=== PATIENT | female | born 1960 | race Caucasian/White ===

== ENCOUNTER → 2018-12-10 | Outpatient (CLI) | payer OTHER | LOC: LAB SHORT 07:59 → PLD 07:59 | DX: R87.612 Low grade squamous intraepithelial lesion on cytologic smear of cervix (LGSIL) (principal); R87.810 Cervical high risk human papillomavirus (HPV) DNA test positive | CPT/HCPCS: 88305; 88342 ==

== ENCOUNTER → 2019-12-21 | Outpatient (CLI) | payer OTHER ==
[2019-12-23 15:11] LABS: HPV 16 Negative (Negative); HPV 18 Negative (Negative); HPV OTHER HR TYPES Positive (Negative)
== END ==
LOC: LAB SHORT 19:23 → LAB 19:23
PROVIDERS: Registered Nurse Community Health
DX: Z12.4 Encounter for screening for malignant neoplasm of cervix (principal); Z87.42 Personal history of other diseases of the female genital tract
CPT/HCPCS: 87624; 87625; G0123

== ENCOUNTER → 2020-04-03 | Outpatient (CLI) | payer OTHER | LOC: LAB SHORT 07:58 → PLD 07:58 | DX: R87.619 Unspecified abnormal cytological findings in specimens from cervix uteri (principal) | CPT/HCPCS: 88305; 88342 ==

== ENCOUNTER 2021-08-30 10:05 | Day surgery (SDC) | payer OTHER ==
[~2021-08-30] VITALS: Ht 152.4 cm; Wt 52.2 kg
[2021-08-30] MEDS ORDERED: PROBIOTIC1 EA13 PO (10:17)
[2021-08-30] MEDS ORDERED: ATOR10 PO (10:17)
[2021-08-30] MEDS ORDERED: LOSA25 PO (10:18)
--- NOTE | 2021-08-30 10:34 | NUR ---
08/30/21 1033 Deb Rivera PT IN ROOM WITH DR. LUCAS. NO QUESTIONS OR CONCERNS FOR THE RN IN ROOM. CALL LIGHT WITHIN REACH. BED IN LOWEST POSITION. SIDERAILS UP. WILL CONTINUE TO MONITOR
--- NOTE | 2021-08-30 11:35 | NUR ---
08/30/21 1135 Lisa Duff IN/OUT CATH AT START OF CASE
== END 2021-08-30 12:05 | disposition home or self-care (01) ==
LOC: ORSCSDS 10:05
PROVIDERS: Obstetrics & Gynecology
PROC: 0UBC7ZX Excision of Cervix, Via Natural or Artificial Opening, Diagnostic (ICD-10-PCS; principal; 2021-08-30 11:00)
DX: D06.0 Carcinoma in situ of endocervix (principal); I10 Essential (primary) hypertension; Z79.899 Other long term (current) drug therapy
CPT/HCPCS: 88305; J0171; J0690; J1100; J1885; J2405; J2704; J3010; J7120

== ENCOUNTER 2022-08-29 11:18 | Day surgery (SDC) | payer OTHER ==
[2022-08-28 12:38] LABS: BASOPHILS ABSOLUTE AUTO 0.06 K/mm3 (0.00-0.23); BASOPHILS PERCENT AUTO 1 % (0-2); EOSINOPHILS ABSOLUTE AUTO 0.18 K/mm3 (0.00-0.68); EOSINOPHILS PERCENT AUTO 3 % (0-6); Hematocrit 42.3 % (33.0-51.0); Hemoglobin 13.5 g/dL (11.5-16.0); IMMATURE GRAN ABSOLUTE AUTO 0.01 K/mm3 (0.00-0.10); IMMATURE GRAN PERCENT AUTO 0 % (0-1); LYMPHOCYTES ABSOLUTE AUTO 2.46 K/mm3 (0.84-5.20); LYMPHOCYTES PERCENT AUTO 39 % (21-46); MONOCYTES ABSOLUTE AUTO 0.44 K/mm3 (0.16-1.47); MONOCYTES PERCENT AUTO 7 % (4-13); Mean Corpuscular HGB 29.8 pg (26.0-34.0); Mean Corpuscular HGB Conc 31.9 g/dL (31.5-36.5); Mean Corpuscular Volume 93 fL (80-100); Mean Platelet Volume 10.2 fL (9.1-12.4); NEUTROPHILS ABSOLUTE AUTO 3.16 K/mm3 (1.96-9.15); NEUTROPHILS PERCENT AUTO 50 % (41-73); Platelet Count 325 K/mm3 (150-400); RDW Coefficient Variation 13.7 % (11.7-14.2); RDW Standard Deviation 46.8 fL (35.1-46.3); Red Blood Cell Count 4.53 M/mm3 (3.80-5.20); White Blood Cell Count 6.31 K/mm3 (4.00-11.30)
[2022-08-28 12:53] LABS: Bun/Creatinine Ratio 15.7 (12.0-20.0); Calcium, Blood 9.2 mg/dL (8.5-10.1); Creatinine, Blood 0.76 mg/dL (0.40-1.00); Potassium, Blood 4.3 mmol/L (3.5-5.5)
[~2022-08-29] VITALS: Ht 152.4 cm; Wt 49.6 kg
[~2022-08-29 11:18] MED LIST: ATOR10 PO; LOSA25 PO; PROBIOTIC1 EA13 PO
--- NOTE | 2022-08-29 12:51 | NUR ---
Ambulatory in Day Surgery Surgical site prepped with 2% Chlorhexidine cloth wipe. History, Chart, Medications and Allergies reviewed before start of procedure. Patient confirms NPO status and agrees with scheduled surgery. Pre-Op teaching done. Pt verbalizes understanding. Patient reports completing Chlorhexadine shower X2 prior to admission to hospital. PT GLASSES GIVEN TO DAUGHTER IN PREOP.
--- NOTE | 2022-08-29 17:21 | NUR ---
PT ARRIVED TO UNIT FROM PACU TRANSFERRED PT FROM [facility] TO BED. DENIES PAIN, N/V OR SOB. VSS. HARMON CATH DRAINING CLEAR YELLOW URINE. LAP SITES TO ABD CDI. SCANT AMOUNT DRAINAGE NOTED ON AGATHA PAD. ORIENTED PT TO USE OF CALL LIGHT. FAMILY AT [facility].
--- NOTE | 2022-08-29 18:28 | NUR ---
SUMMARY PT SLEEPING. WAKES TO VOICE. FAMILY AT BEDSIDE. PT HAS DENIED PAIN, N/V OR SOB. CALL LIGHT IN REACH.
--- NOTE | 2022-08-30 01:30 | NUR ---
DISCUSSED REMOVING CATHETER AND ATTEMPTING AMBULATION WITH PT. PT REQUESTED TO SLEEP AND REST FOR THE NIGHT AND PREFERED THE CATHETER REMAIN IN PLACE UNTIL MORNING, PER ORDER. PT RESTING WITH CALL LIGHT IN REACH.
[2022-08-30 04:30] LABS: BASOPHILS ABSOLUTE AUTO 0.02 K/mm3 (0.00-0.23); BASOPHILS PERCENT AUTO 0 % (0-2); EOSINOPHILS PERCENT AUTO 0 % (0-6); Hematocrit 35.5 % (33.0-51.0); Hemoglobin 11.9 g/dL (11.5-16.0); IMMATURE GRAN ABSOLUTE AUTO 0.06 K/mm3 (0.00-0.10); IMMATURE GRAN PERCENT AUTO 1 % (0-1); LYMPHOCYTES ABSOLUTE AUTO 1.53 K/mm3 (0.84-5.20); LYMPHOCYTES PERCENT AUTO 12 % (21-46); MONOCYTES ABSOLUTE AUTO 0.54 K/mm3 (0.16-1.47); MONOCYTES PERCENT AUTO 4 % (4-13); Mean Corpuscular HGB 30.6 pg (26.0-34.0); Mean Corpuscular HGB Conc 33.5 g/dL (31.5-36.5); Mean Corpuscular Volume 91 fL (80-100); Mean Platelet Volume 10.4 fL (9.1-12.4); NEUTROPHILS ABSOLUTE AUTO 10.56 K/mm3 (1.96-9.15); NEUTROPHILS PERCENT AUTO 83 % (41-73); Platelet Count 268 K/mm3 (150-400); RDW Coefficient Variation 13.9 % (11.7-14.2); RDW Standard Deviation 46.4 fL (35.1-46.3); Red Blood Cell Count 3.89 M/mm3 (3.80-5.20); White Blood Cell Count 12.71 K/mm3 (4.00-11.30)
--- NOTE | 2022-08-30 04:58 | NUR ---
0400 HRS: DISCUSSED REMOVING CATHETER WITH PT. PT STATES SHE WANTS THE HARMON TO STAY IN UNTIL SHE GETS UP FOR THE MORNING. WILL DISCUSS WITH DAY RN DURING REPORT. EDUCATED PT. PT WOULD LIKE TO REST AND STATES THAT SHE IS TIRED AND WOULD LIKE TO SLEEP FOR THE REST OF THE SHIFT IF POSSIBLE.
--- NOTE | 2022-08-30 05:19 | NUR ---
SHIFT SUMMARY: A&OX4. VERY PLEASANT. PAIN WELL MANAGED T/O THE SHIFT. VERY LIGHT VAGINAL BLEEDING T/O THE SHIFT. PT RESTED COMORTABLY. TOLERATING PO FLUIDS AND FOOD. SNACKED ON JELLO AND CRACKERS DURING THE SHIFT. DENIED N/V. RESTING COMFORTABLY AT THIS TIME WITH CALL LIGHT IN REACH.
[2022-08-30] MEDS ORDERED: ESTR2 PO (09:49)
[2022-08-30] MEDS ORDERED: IBUP400 PO (09:49)
[2022-08-30] MEDS ORDERED: PROM25 PO (09:50)
[2022-08-30] MEDS ORDERED: SIME80CH PO (09:50)
[2022-08-30] MEDS ORDERED: Percocet 5-3251 EACH PO (09:50)
--- NOTE | 2022-08-30 10:17 | NUR ---
DISCHARGE NOTE: PATIENT AND WERE EDUCATED ON DISCHARGE INSTRUCTIONS. BOTH VERBALIZED UNDERSTANDING OF INSTRUCTIONS AND HAD NO FURTHER QUESTIONS. PATIENT ALREADY HAS HARD PERSCRIPTIONS FILLED OUT AND WAITING FOR HER AT HOME. PAIN IS MANAGED WITH PO PAIN MEDICATIONS. IV WAS TAKEN OUT AND WNL. SHE IS TOLERATING PO INTAKE, VOIDING, AND PASSING A LITTLE BIT OF GAS. SHE IS AMBULATING WITHIN THE ROOM INDEP. SHE IS DRESSED AND HAS ITEMS IN THE ROOM GATHERED. PATIENT IS BEING WHEELCHAIRED DOWN TO HER HUSBANDS CAR TO BE TAKEN HOME. PATIENTS ESTROGEN PILL WAS CALLED IN TO HER PREFERRED PHARMACY WHICH IS [facility] IN [place].
== END 2022-08-30 10:21 | disposition home or self-care (01) ==
LOC: ORSCMMR 11:18 → ORD 12:30 → ORSCMMR 13:15 → SURS 17:03 → ORSCMMR 08-30 10:21
PROVIDERS: Obstetrics & Gynecology
PROC: 0UT94ZZ Resection of Uterus, Percutaneous Endoscopic Approach (ICD-10-PCS; principal; 2022-08-29 13:15)
PROC: 0UT24ZZ Resection of Bilateral Ovaries, Percutaneous Endoscopic Approach (ICD-10-PCS; principal; 2022-08-29 13:15)
PROC: 0UT74ZZ Resection of Bilateral Fallopian Tubes, Percutaneous Endoscopic Approach (ICD-10-PCS; principal; 2022-08-29 13:15)
DX: R87.610 Atypical squamous cells of undetermined significance on cytologic smear of cervix (ASC-US) (principal); R87.810 Cervical high risk human papillomavirus (HPV) DNA test positive; N87.0 Mild cervical dysplasia; D25.9 Leiomyoma of uterus, unspecified; N80.03 Adenomyosis of the uterus; I10 Essential (primary) hypertension; Z79.899 Other long term (current) drug therapy
CPT/HCPCS: 58571; S2900; 36415; 80048; 85025; 86850; 86900; 86901; 88307; A9270; J0690; J1885; J2250; J2704; J2795; J3010; J7120

== ENCOUNTER → 2025-03-14 | Outpatient (CLI) | payer OTHER ==
[~2025-03-14] MED LIST changes: +ESTR2 PO; +IBUP400 PO; +PROM25 PO; +Percocet 5-3251 EACH PO; +SIME80CH PO
[2025-03-14 18:36] LABS: Anion Gap 9 mmol/L (3-11); Blood Urea Nitrogen 17 mg/dL (8-24); CHOL/HDL RATIO 2.1; CO2, Blood 27 mmol/L (21-32); Calcium, Blood 9.4 mg/dL (8.5-10.1); Chloride, Blood 108 mmol/L (98-108); Cholesterol 149 mg/dL (50-200); Glucose, Blood 81 mg/dL (70-99); HDL Cholesterol 71 mg/dL (>39); LDL/HDL RATIO 0.5; Low Density Lipoprotein Chol 39 mg/dL (0-110); Potassium, Blood 4.1 mmol/L (3.5-5.5); Sodium, Blood 140 mmol/L (136-145); Triglycerides 195 mg/dL (30-160); Very Low Density Lipoprot Chol 39 mg/dL (6-32)
[2025-03-14 18:37] LABS: Creatinine, Blood 0.85 mg/dL (0.40-1.00); Glomerular Filtration Rate 77 (60-)
== END ==
LOC: LAB SHORT 16:03 → LAB 16:03
PROVIDERS: Nurse Practitioner Family
DX: E78.5 Hyperlipidemia, unspecified (principal); I10 Essential (primary) hypertension
CPT/HCPCS: 80048; 80061

== ENCOUNTER 2025-06-20 08:04 | Day surgery (SDC) | payer OTHER ==
[2025-06-20] VITALS (14 sets, daily range): BP systolic 102–175; BP diastolic 71–120
[~2025-06-20] VITALS: Ht 149.9 cm; Wt 52.0 kg
--- NOTE | 2025-06-20 10:24 | NUR ---
06/20/25 1024 Sola Gregory COLONOSCOPE USE SERIAL #[id number]
--- NOTE | 2025-06-20 11:09 | NUR ---
Patient up to Ambulate independently. Gait steady. Discharge instructions reviewed with patient. Patient verbalizes understanding. Copy given to patient to take home. Discharged via wheelchair to private car for ride home WITH FRIEND
== END 2025-06-20 23:20 | disposition home or self-care (01) ==
LOC: ORSCMMR 08:04 → ORD 09:00 → ORSCMMR 23:20
PROVIDERS: Internal Medicine Gastroenterology
PROC: 0DBL8ZX Excision of Transverse Colon, Via Natural or Artificial Opening Endoscopic, Diagnostic (ICD-10-PCS; principal; 2025-06-20 09:00)
PROC: 0DBM8ZX Excision of Descending Colon, Via Natural or Artificial Opening Endoscopic, Diagnostic (ICD-10-PCS; principal; 2025-06-20 09:00)
DX: Z12.11 Encounter for screening for malignant neoplasm of colon (principal); D12.4 Benign neoplasm of descending colon; K63.5 Polyp of colon; I10 Essential (primary) hypertension; E78.00 Pure hypercholesterolemia, unspecified; Z79.899 Other long term (current) drug therapy
CPT/HCPCS: 88305; J2704; J7120

== ENCOUNTER → 2025-09-15 | Outpatient (CLI) | payer OTHER ==
[2025-09-15 19:34] LABS: Alanine Aminotransfer (ALT/SGP 35.0 U/L (12-78); Albumin, Blood 4.0 g/dL (3.4-5.0); Albumin/Globulin Ratio 1.1 (0.8-1.8); Anion Gap 7.0 mmol/L (3-11); Aspartate Aminotrans (AST/SGOT 13.0 U/L (12-37); Bilirubin, Total 0.5 mg/dL (0.1-1.0); Blood Urea Nitrogen 15.0 mg/dL (8-24); CO2, Blood 26.0 mmol/L (21-32); Calcium, Blood 8.9 mg/dL (8.5-10.1); Chloride, Blood 109.0 mmol/L (98-108); Creatinine, Blood 0.76 mg/dL (0.40-1.00); Globulin, Blood 3.6 g/dL (2.2-4.0); Glucose, Blood 96.0 mg/dL (70-99); Potassium, Blood 3.9 mmol/L (3.5-5.5); Sodium, Blood 138.0 mmol/L (136-145); Total Protein, Blood 7.6 g/dL (6.4-8.2)
== END ==
LOC: LAB 16:04 → LAB SHORT 16:04
PROVIDERS: Nurse Practitioner Family
DX: I10 Essential (primary) hypertension (principal)
CPT/HCPCS: 80053